=== PATIENT | male | born 1980 | race African-American/Black ===

== ENCOUNTER 2018-11-23 08:57 | Emergency (ER) | payer SELFPAY ==
[~2018-11-23] VITALS: Ht 165.1 cm; Wt 59.0 kg
[2018-11-23] MEDS ORDERED: TDAP DIPH,PERTUSS,TET VAC/PF 0.5 ML DISP.SYRIN IM ONE ×2 (09:10→09:15)
[2018-11-23] MEDS ORDERED: NEOMY/BACITRA/POLYMYXIN B OINT UD PACKET TP ONE ×2 (09:21→09:30)
--- NOTE | 2018-11-23 09:22 | NUR ---
Bite site on Lt leg, cleaned and dressed.
[2018-11-23 09:27] VITALS: BP 139/74
--- NOTE | 2018-11-23 09:28 | NUR ---
Patient discharged to home in stable conditon. Written and verbal after care instructions given. Patient verbalizes understanding of instructions.
== END 2018-11-23 09:28 | disposition home or self-care (01) ==
LOC: ER 08:57
DX: S81.852A Open bite, left lower leg, initial encounter (principal); W54.0XXA Bitten by dog, initial encounter; Y93.89 Activity, other specified; Y92.89 Other specified places as the place of occurrence of the external cause; Y99.8 Other external cause status
CPT/HCPCS: 90715; A4663

== ENCOUNTER 2018-12-12 07:50 | Emergency (ER) | payer SELFPAY ==
[~2018-12-12] VITALS: Ht 165.1 cm; Wt 61.2 kg
--- NOTE | 2018-12-12 07:57 | NUR ---
PT IS IN ROOM #2B. DR MELCHOR EVALUATED THE PT.
[2018-12-12] MEDS ORDERED: HYDROCORTISONE 1% CREAM 30 GM TUBE TP ONE (08:07)
[2018-12-12] MEDS: HYDROCORTISONE 1% CREAM 30 GM TUBE TP ONE (08:32)
--- NOTE | 2018-12-12 08:32 | NUR ---
PT WAS D/Cbibi FISHER. D/C INSTRUCTIONS GIVEN TO THE PT.
[2018-12-12 08:33] VITALS: BP 132/78
== END 2018-12-12 08:34 | disposition home or self-care (01) ==
LOC: ER 07:50
DX: L25.5 Unspecified contact dermatitis due to plants, except food (principal)
CPT/HCPCS: A4663

== ENCOUNTER 2018-12-23 12:19 | Emergency (ER) | payer SELFPAY ==
[~2018-12-23] VITALS: Ht 170.2 cm; Wt 61.2 kg
--- NOTE | 2018-12-23 12:51 | NUR ---
Patient discharged to home in stable conditon. Written and verbal after care instructions given. Patient verbalizes understanding of instructions.
== END 2018-12-23 12:52 | disposition home or self-care (01) ==
LOC: ER 12:19
DX: L29.9 Pruritus, unspecified (principal); Z59.0 Homelessness
CPT/HCPCS: A4663